=== PATIENT | male | born 1955 | race Hispanic/Latino ===

== ENCOUNTER 2017-06-25 14:41 | Emergency (ER) | payer OTHER ==
[2017-06-25 14:42] VITALS: BMI 23.6
[2017-06-25 15:03] VITALS: TEMP 98.6
[2017-06-25] MEDS ORDERED: Naproxen 550 mg Tab PO STA (15:24)
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
[2017-06-25] MEDS ORDERED: Lidocaine 1% Inj (20ml) ONE (15:58)
[2017-06-25 16:23] VITALS: BP 141/74; PULSE 75; RESP 18; O2SAT 98
== END 2017-06-25 16:37 | disposition home or self-care (01) ==
LOC: ED 14:41
DX: S91.311A Laceration without foreign body, right foot, initial encounter (principal); W01.0XXA Fall on same level from slipping, tripping and stumbling without subsequent striking against object, initial encounter; Y93.02 Activity, running; Y92.89 Other specified places as the place of occurrence of the external cause